=== PATIENT | female | born 1950 | race Caucasian/White ===

== ENCOUNTER 2020-05-25 10:36 | Emergency (ER) | payer MEDICARE ==
[~2020-05-25] VITALS: Ht 149.9 cm; Wt 72.7 kg
[~2020-05-25 10:36] MED LIST: HYDR-4353 PO; LIDO700A5 TOP
[2020-05-25 11:35] LABS: BASOPHILS % (AUTO) 0.3 % (0-1); EOSINOPHILS # (AUTO) 0.1 X10'3 (0-0.9); EOSINOPHILS % (AUTO) 1.4 % (0-6); HEMATOCRIT 39.9 % (35.0-45.0); HEMOGLOBIN 13.2 g/dl (12.0-16.0); LYMPHOCYTES # (AUTO) 1.1 X10'3 (1.1-4.8); LYMPHOCYTES % (AUTO) 14.1 % (21-51); MEAN CORPUSCULAR HGB CONC 33.2 g/dL (33.0-36.5); MEAN CORPUSCULAR VOLUME 87.3 FL (78-98); MEAN PLATELET VOLUME 7.2 FL (7.4-10.4); MONOCYTES # (AUTO) 0.5 X10'3 (0-0.9); MONOCYTES % (AUTO) 6.3 % (2-12); NEUTROPHILS # (AUTO) 6.1 X10'3 (1.8-7.7); NEUTROPHILS % (AUTO) 77.9 % (42-75); PLATELET COUNT 289 X10'3 (140-440); RED BLOOD COUNT 4.57 X10'6 (4.20-5.60); RED CELL DISTRIBUTION WIDTH 13.6 % (11.5-14.5); WHITE BLOOD COUNT 7.8 X10'3 (4.5-11.0)
[2020-05-25 11:49] LABS: ALANINE AMINOTRANSFERASE 28 U/L (12-78); ALBUMIN 4.3 G/DL (3.4-5.0); ALBUMIN/GLOBULIN RATIO 1.2 (1.1-1.5); ALKALINE PHOSPHATASE 84 IU/L (46-116); ANION GAP 8 (8-16); ASPARTATE AMINO TRANSFERASE 23 U/L (10-37); BILIRUBIN,TOTAL 0.3 MG/DL (0.1-1.0); BLOOD UREA NITROGEN 8 MG/DL (7-18); BUN/CREATININE RATIO 13.1 (6.6-38.0); CALCIUM 9.2 MG/DL (8.5-10.1); CHLORIDE 102 MMOL/L (99-107); CREATININE 0.61 MG/DL (0.40-0.90); GLUCOSE 107 MG/DL (70-104); POTASSIUM 3.9 MMOL/L (3.5-5.1); SODIUM 139 MMOL/L (135-145); TOTAL CARBON DIOXIDE 29.4 MMOL/L (24-32); eGFR > 90 ML/MIN
[2020-05-25 12:11] VITALS: BP 168/83
== END 2020-05-25 12:18 | disposition home or self-care (01) ==
LOC: ER 10:37
DX: I10 Essential (primary) hypertension (principal); E78.00 Pure hypercholesterolemia, unspecified; K21.9 Gastro-esophageal reflux disease without esophagitis; G89.29 Other chronic pain; Z79.899 Other long term (current) drug therapy
CPT/HCPCS: 36415; 71045; 80053; 83880; 84484; 85025; 93005; 99285

== ENCOUNTER 2020-06-07 15:31 | Emergency (ER) | payer MEDICARE ==
[~2020-06-07] VITALS: Ht 149.9 cm; Wt 72.7 kg
[2020-06-07 17:15] VITALS: BP 145/82
== END 2020-06-07 17:17 | disposition home or self-care (01) ==
LOC: ER 15:32
DX: R55 Syncope and collapse (principal); R11.0 Nausea; E78.00 Pure hypercholesterolemia, unspecified; K21.9 Gastro-esophageal reflux disease without esophagitis; I10 Essential (primary) hypertension; G89.29 Other chronic pain; Z79.899 Other long term (current) drug therapy
CPT/HCPCS: 93005; 99283

== ENCOUNTER 2022-07-04 18:29 | Emergency (ER) | payer MEDICARE, MEDICAID ==
[~2022-07-04] VITALS: Ht 149.9 cm; Wt 60.0 kg
[2022-07-04 18:52] LABS: BASOPHILS # (AUTO) 0.1 X10'3 (0-0.2); BASOPHILS % (AUTO) 0.9 % (0-1); EOSINOPHILS # (AUTO) 0.2 X10'3 (0-0.9); EOSINOPHILS % (AUTO) 2.5 % (0-6); HEMATOCRIT 35.4 % (35.0-45.0); HEMOGLOBIN 11.4 g/dl (12.0-16.0); LYMPHOCYTES # (AUTO) 2.2 X10'3 (1.1-4.8); MEAN CORPUSCULAR HEMOGLOBIN 27.4 PG (27.0-31.0); MEAN CORPUSCULAR HGB CONC 32.3 g/dL (33.0-36.5); MEAN CORPUSCULAR VOLUME 84.7 FL (78-98); MONOCYTES # (AUTO) 0.6 X10'3 (0-0.9); MONOCYTES % (AUTO) 8.8 % (2-12); NEUTROPHILS % (AUTO) 56.8 % (42-75); PLATELET COUNT 278 X10'3 (140-440); RED BLOOD COUNT 4.18 X10'6 (4.20-5.60); RED CELL DISTRIBUTION WIDTH 14.1 % (11.5-14.5); WHITE BLOOD COUNT 7.1 X10'3 (4.5-11.0)
[2022-07-04 19:14] LABS: ALANINE AMINOTRANSFERASE 16 U/L (12-78); ALBUMIN 4.1 G/DL (3.4-5.0); ALBUMIN/GLOBULIN RATIO 1.3 (1.1-1.5); ALKALINE PHOSPHATASE 94 IU/L (46-116); ANION GAP 15 (8-16); ASPARTATE AMINO TRANSFERASE 19 U/L (10-37); BILIRUBIN,TOTAL 0.2 MG/DL (0.1-1.0); BLOOD UREA NITROGEN 9 MG/DL (7-18); BUN/CREATININE RATIO 10.3 (6.6-38.0); CALCIUM 8.9 MG/DL (8.5-10.1); CHLORIDE 101 MMOL/L (99-107); CREATININE 0.87 MG/DL (0.40-0.90); GLUCOSE 140 MG/DL (70-104); SODIUM 145 MMOL/L (135-145); TOTAL CARBON DIOXIDE 29.1 MMOL/L (24-32); TOTAL PROTEIN 7.3 G/DL (6.4-8.2); eGFR 64 ML/MIN
[2022-07-04 19:16] LABS: MAGNESIUM 2.6 MG/DL (1.5-2.4)
[2022-07-04 23:46] LABS: MAGNESIUM 2.5 MG/DL (1.5-2.4)
[2022-07-05] MEDS ORDERED: ringers solution, lacted 1,000 ML IV ONE (01:10)
[2022-07-05] MEDS ORDERED: acetaminophen 325mg tablet PO ONE (01:10)
[2022-07-05 02:22] VITALS: BP 189/102
== END 2022-07-05 02:23 | disposition home or self-care (01) ==
LOC: ER 18:32
DX: R55 Syncope and collapse (principal); R51.9 Headache, unspecified; R42 Dizziness and giddiness; E78.00 Pure hypercholesterolemia, unspecified; I10 Essential (primary) hypertension; K21.9 Gastro-esophageal reflux disease without esophagitis; G89.29 Other chronic pain; Z79.899 Other long term (current) drug therapy; Z79.1 Long term (current) use of non-steroidal anti-inflammatories (NSAID)
CPT/HCPCS: 36415; 80053; 83735; 83880; 84484; 85025; 96360; 99284; J7030; J7120

== ENCOUNTER 2025-01-06 17:27 | Emergency (ER) | payer MEDICARE, MEDICAID ==
[~2025-01-06] VITALS: Ht 162.6 cm; Wt 72.7 kg
[~2025-01-06 17:27] MED LIST changes: +ALEN70TA60 PO; +ASPI81TA52 PO; +CETI-91 PO; +ERGO50002 PO; +GABA-1405 PO; +HYDR-3972 PO; -HYDR-4353 PO; +LEVO100C5 PO; -LIDO700A5 TOP; +LOSA-415 PO; +LOVA40TA2 PO; +TIZA2CAP7 PO
--- NOTE | 2025-01-06 17:40 | ELECTROCARDIOGRAPH REPORT ---
[facility] Test Date: 2025-01-06 Test Time: 17:31:05 Pat Name: DYLAN IBARRA Department: EMERGENCY ROOM Patient ID: [id number] Room: Gender: F Cpc: : 1950 Requested By: SIDDHARTH LOPEZ Order Number: [id number] Reading MD: Dr. Flakito Enrique Measurements Intervals [place] Rate: 53 P: -5 IN: 184 QRS: 12 QRSD: 91 T: 36 QT: 452 QTc: 425 Interpretive Statements Sinus bradycardia Abnormal R-wave progression, early transition Electronically Signed On 01-06-2025 19:18:[address] Flakito Enrique Please click the below link to view image of tracing.
--- NOTE | 2025-01-06 17:46 | Physician Documentation ---
History of Present Illness Stated Complaint: STROKE Time Seen by MD: 17:39 Primary Medical Doctor: [facility] VALENTIN ESPINOZA HPI 74-year-old female that presented to the emergency department with her sister for evaluation of problems for her sister today. The patient syncopized while i n the triage room with her sister became very diaphoretic confused unresponsive and then unconscious for approximately 1 minute. Patient was moved to a gurney transferred to a room immediately placed on a monitor 12 lead done quickly an ACS workup initiated. Patient is now awake and answering questions reports that she has had multiple syncopal episodes with unknown origin. Patient does report a cardiac history but unsure of what specifically she has been diagnosed with that time. Medication Reconciliation Allergies: Coded Allergies: No Known Allergies (Unverified , 12/01/23) Scheduled Alendronate Sodium* (Fosamax*), 1 TAB PO Q7D, (Reported) Aspirin (Aspirin EC), 1 TAB PO DAILY, (Reported) Ergocalciferol (Vitamin D2), 1 CAP PO Q7D, (Reported) Gabapentin (Gabapentin), 0.5 TAB PO DAILY, (Reported) Levothyroxine Sodium (Levothyroxine), 100 MCG PO BKF, (Reported) Losartan Potassium* (Cozaar*), 4 TAB PO DAILY, (Reported) Lovastatin (Lovastatin), PO HS, (Reported) Tizanidine Hcl (Tizanidine Hcl), 1 CAP PO HS, (Reported) Scheduled PRN Cetirizine HCl (Zyrtec), 1 TAB PO PRN PRN for headache, (Reported) Hydrocodone Bit/Acetaminophen (Hydrocodon-Acetaminophn 10-325 tablet), 1 TAB PO BID PRN for pain, (Reported) Past Medical History Past Medical History: High Cholesterol, Hypertension, GERD, Thyroid (unspecified), Arthritis, Chronic Pain Past Surgical History: no surgical history Drug Use: none Lives with: Family Lives In: Home Occupation: retired Review of Systems ROS As stated above in the HPI, otherwise all systems are reviewed and negative. Physical Exam Physical Exam VITALS: Reviewed and as above. GENERAL: Alert, no apparent distress. HEENT: Normocephalic, atraumatic, PERRL, EOMI, dry mucosa, no erythema RESPIRATORY: Lungs clear, normal breath sounds, no respiratory distress. CHEST: No accessory muscle use, no retractions CV: Regular rate, rhythm, no edema, no murmur, No: JVD GI: Soft, non-tender, bowels sounds present, no rebound, guarding, or rigidity BACK: No CVA tenderness, or swelling MUSCULOSKELETAL No deformities, no edema SKIN: Warm and dry, no rash, diaphoretic, clammy NEURO: Oriented x4, No motor or sensory deficit PSYCH: Normal mood and affect, no agitation Progress Results/Orders Results/Orders Orders - SIDDHARTH LOPEZ [employer] Chest,Single View (01/06/25 17:38) Monitor (01/06/25 17:38) Saline Lock (01/06/25 17:38) Oxygen (01/06/25 17:38) Cbc/Diff (01/06/25 17:38) BMP (01/06/25 17:38) PBNP (01/06/25 17:38) Hs Troponin I W Calculations (01/06/25 17:38) Hs Troponin I W Calculations (01/06/25 19:38) Hs Troponin I W Calculations (01/06/25 20:38) Completed Orders - SIDDHARTH LOPEZ [employer] Electrocardiogram (01/06/25 17:38) Laboratory Tests Test 01/06/25 17:30 Glucometer 112 H Medical Decision Making Findings [age]rn[age]nb-old female syncopized in the emergency department while assisting her sister in a blood draw Given history, exam and workup, low suspi cion for HF, ICH (no trauma, headache), seizure (no witnessed seizure like activity, no postictal period, tongue laceration, bladder incontinence), stroke (no focal neuro deficits), HOCM (no murmur, family history of sudden ), ACS (neg troponin, negative EKG, negative chest x-ray, no anginal pain), aortic dissection (no chest pain), malignant arrhythmia on ekg or any family history of sudden , or GI bleed (stable hgb). Low suspicion for PE given normal vital signs, absence of chest pain or dyspnea, no evidence of DVT, no recent surgery/immobilization. Based on anguillan syncope rule, patient is low risk and well appearing here, plan to discharge the patient home with PMD follow up. Patient will return to the emergency department with any worsening or recurrent symptoms or any additional concerning symptoms that we discussed here today i.e. chest pain shortness of breath lightheadedness dizziness numbness and tingling or any other concerning symptoms. Differential Dx:Considerations: Include: AAA, -Complete, - Incomplete, -Inevitable, -Missed, -Threatened, Abruptio placentae, Angina/UT, Aortic dissection, Appendicitis, Bowel obstruction, Cholangitis, Cholelithasis, Constipation, Diverticular disease, Esophageal rupture, Esophagitis, Gastritis/PUD, Gastroenteritis, GI hemorrhage, Hernia, Hepatitis, Inflammatory BD, Ischemic bowel, Ovarian cyst/torsion, Pancreatitis, PID, Porphyria, Trauma, intraabdominal, Urinary obstruction, Urinary tract infe ction, Urolithiasis, Other Departure Disposition: 01 HOME / SELF CARE / HOMELESS Impression: Primary Impression: Anemia Additional Impression: Vasovagal syncope Condition: Stable Discharge Instructions: Syncope, Adult, Zzcw-et-Ceha Additional Instructions: Ivdxati-lrkf-vobj-old female syncopized in the emergency department while caroline ting her sister in a blood draw Given history, exam and workup, low suspicion for HF, ICH (no trauma, headache), seizure (no witnessed seizure like activity, no postictal period, tongue laceration, bladder incontinence), stroke (no focal neuro deficits), HOCM (no murmur, family history of sudden ), ACS (neg troponin, negative EKG, negative chest x-ray, no anginal pain), aortic dissection (no chest pain), malignant arrhythmia on ekg or any family history of sudden , or GI bleed (stable hgb). Low suspicion for PE given normal vital signs, absence of chest pain or dyspnea, no evidence of DVT, no recent surgery/immobilization. Based on anguillan syncope rule, patient is low risk and well appearing here, plan to discharge the patient home with PMD follow up. Patient will return to the emergency department with any worsening or recurrent symptoms or any additional concerning symptoms that we discussed here today i.e. chest pain shortness of breath lightheadedness dizziness numbness and tingling or any other concerning symptoms. Referrals: NO PRIMARY CARE PROVIDER (PCP) Education Educated: Patient Educated regarding: diagnosis, treatment, need for follow up Signature Scribe Signature: A Attestation: Scribed for Siddharth Lopez by TEA Metzger . 01/06/25 19:58 SIDDHARTH LOPEZ Jan 06, 2025 17:46
[2025-01-06 18:01] LABS: MEAN PLATELET VOLUME 7.0 FL (7.4-10.4); RED CELL DISTRIBUTION WIDTH 13.3 % (11.5-14.5)
[2025-01-06 18:02] VITALS: BP 110/58; PULSE 67; RESP 10; O2SAT 96
--- NOTE | 2025-01-06 18:08 | RADIOLOGY REPORT ---
CLINICAL HISTORY: CP TECHNIQUE: Single view of the chest was obtained. COMPARISON: DI CHEST,SINGLE VIEW on DOS: 12/01/23, CHEST,SINGLE VIEW on DOS: 05/25/20, CHEST,SINGLE VIEW on DOS: 01/15/20 FINDINGS: The heart size and pulmonary vasculature are normal. There is elevation of the right hemidiaphragm. There is mild left basilar linear atelectasis. IMPRESSION: NO ACUTE CARDIOPULMONARY PROCESS.
[2025-01-06 19:12] LABS: CREATININE 0.93 MG/DL (0.40-0.90); PRO BRAIN NATRIURETIC PEPTIDE 198 PG/ML (0-450); eCRCL 45 ML/MIN; eGFR 59 ML/MIN
[2025-01-06 19:15] LABS: TOTAL CARBON DIOXIDE 28.9 MMOL/L (24-32)
[2025-01-06 20:10] VITALS: TEMP 98
== END 2025-01-06 20:12 | disposition home or self-care (01) ==
LOC: ER 17:27
DX: D64.9 Anemia, unspecified (principal); R55 Syncope and collapse; R06.02 Shortness of breath; E78.00 Pure hypercholesterolemia, unspecified; K21.9 Gastro-esophageal reflux disease without esophagitis; I10 Essential (primary) hypertension; M19.90 Unspecified osteoarthritis, unspecified site
CPT/HCPCS: 36415; 71045; 80048; 82948; 83880; 84484; 85025; 93005; 99285